=== PATIENT | female | born 1965 | race Caucasian/White ===

== ENCOUNTER 2021-03-09 11:36 | Emergency (ER) | payer MEDICAID ==
[~2021-03-09] VITALS: Ht 160 cm; Wt 72.6 kg
[2021-03-09 11:42] VITALS: BP 151/85
--- NOTE | 2021-03-09 11:45 | NUR ---
Patient wheelchair assisted to bed 8.
--- NOTE | 2021-03-09 11:52 | NUR ---
PATIENT PRESENTS TO ED WITH C/O HIP PAIN. PT STATES SHE FELL DOWN THE STAIRS 30 MIN AGO AND HIT HER HIP ON SEVERAL STAIRS; DENIES LOC OR HITTING HEAD; PT IS BARELY ABLE TO BEAR WEIGHT ON HIP AND IS IN WHEELCHAIR; DENIES N/V/D; SKIN IS PINK/WARM/DRY; AAOX4; LUNGS CLEAR BL; HR EVEN AND REGULAR; PT DENIES ANY FEVER, CP, SOB, OR COUGH AT THIS TIME; PATIENT STATES PAIN OF 8/10 AT THIS TIME; VSS; PATIENT POSITIONED FOR COMFORT; HOB ELEVATED; BEDRAILS UP X1; BED DOWN. ER MD MADE AWARE OF PT STATUS. HX: HYPOTHYROIDISM, RHEUMATOID ARTHRITIS NKA
[2021-03-09] MEDS ORDERED: HYDROcodone/APAP 5/325 MG 1 TAB TAB PO ONE (12:30)
--- NOTE | 2021-03-09 13:04 | NUR ---
PATIENT TAKEN TO XRAY VIA GURNEY
--- NOTE | 2021-03-09 13:55 | NUR ---
PT ABLE TO AMBULATE VERY SLOWLY, HAS TO PUT LESS WEIGHT ONTO R LEG AND TAKE SMALLER STEPS. ERMD MADE AWARE
--- NOTE | 2021-03-09 13:59 | NUR ---
DR. ORTEGA REASSESSING PT
[2021-03-09 14:52] VITALS: BP 153/89
--- NOTE | 2021-03-09 14:52 | NUR ---
Patient discharged with v/s stable. Written and verbal after care instructions given and explained. Patient verbalized understanding. Ambulatory with steady gait. All questions addressed prior to discharge. Advised to follow up with PMD.
== END 2021-03-09 14:52 | disposition home or self-care (01) ==
LOC: MED 11:36
DX: M25.551 Pain in right hip (principal); E03.9 Hypothyroidism, unspecified; W18.39XA Other fall on same level, initial encounter; Y93.89 Activity, other specified; Y92.89 Other specified places as the place of occurrence of the external cause; Y99.8 Other external cause status
CPT/HCPCS: 72170; 73502; 99284